=== PATIENT | female | born 1945 | race Two or more races ===

== ENCOUNTER → 2020-10-08 | Outpatient (CLI) | payer MEDICARE, BC ==
[~2020-10-08] MED LIST: GEMF600T8 PO; LEVO75TA5 PO; LOSA50TA14 PO; METF500T17 PO; METO50TA82 PO; OMEP20TA62 PO; ROSU20TA2 PO; SUCR1TAB33 PO
[2020-10-08 10:20] LABS: BASOPHILS % (AUTO) 1 % (0-1); EOSINOPHILS % (AUTO) 2 % (1-7); LYMPHOCYTES % (AUTO) 35 % (22-44); MEAN CORPUSCULAR HEMOGLOBIN 31.1 pg (27.0-34.8); MEAN CORPUSCULAR HGB CONC 33.9 g/dL (32.4-35.8); MEAN PLATELET VOLUME 7.8 fL (7.4-10.4); MONOCYTES % (AUTO) 9 % (2-9); NEUTROPHILS % (AUTO) 54 % (42-75); PLATELET COUNT 202 x10^3/uL (130-400); RED BLOOD COUNT 4.87 x10^6/uL (3.82-5.3); RED CELL DISTRIBUTION WIDTH 13.7 % (9.6-15.2)
[2020-10-08 10:23] LABS: MD NO
[2020-10-08 10:26] LABS: ALBUMIN 4.6 g/dL (3.4-5.0); ANION GAP 3 mmol/L (5-15); CALCIUM 10.4 mg/dL (8.5-10.1); CHLORIDE 111 mmol/L (98-107)
[2020-10-08 10:31] LABS: ALANINE AMINOTRANSFERASE 24 U/L (12-78); ALKALINE PHOSPHATASE 74 U/L (45-117); BILIRUBIN,TOTAL 0.6 mg/dL (0.2-1.0); CREATININE 0.63 mg/dL (0.55-1.02)
== END | disposition home or self-care (01) ==
LOC: STAR 08:25
PROVIDERS: ATTEND Internal Medicine
DX: Z01.818 Encounter for other preprocedural examination (principal); K92.2 Gastrointestinal hemorrhage, unspecified; Z20.828 Contact with and (suspected) exposure to other viral communicable diseases
CPT/HCPCS: 80053; 85025; 87635; 93005

== ENCOUNTER 2020-10-14 10:37 | Day surgery (SDC) | payer MEDICARE, BC ==
[~2020-10-14] VITALS: Ht 152.4 cm; Wt 46.2 kg
[2020-10-14] MEDS ORDERED: PROPOFOL 50 ML ONE (11:11)
[2020-10-14] MEDS ORDERED: LACTATED RINGERS 1,000 ML IV SCH (11:30)
[2020-10-14] MEDS ORDERED: FENTANYL PF 100 MCG/2ML IV PRN (11:30)
[2020-10-14] MEDS ORDERED: LABETALOL 5MG/ML, 20ML IV PRN (11:30)
[2020-10-14] MEDS ORDERED: CHLORHEXIDINE 15 ML UDC MM ONE (11:30)
[2020-10-14] MEDS ORDERED: ONDANSETRON 2MG/ML, 2ML IVPush PRN (11:30)
[2020-10-14] MEDS ORDERED: hydrALAzine 20 MG/ML, 1ML IV PRN (11:30)
[2020-10-14] MEDS ORDERED: DEXTROSE 50%, 50ML SYRINGE IVPush ONE (12:00)
[2020-10-14] MEDS ORDERED: LABETALOL 5MG/ML, 20ML ONE (13:25)
== END 2020-10-14 14:50 | disposition home or self-care (01) ==
LOC: OUT 10:37
PROVIDERS: ATTEND Internal Medicine
DX: R93.89 Abnormal findings on diagnostic imaging of other specified body structures (principal); K57.30 Diverticulosis of large intestine without perforation or abscess without bleeding; K56.699 Other intestinal obstruction unspecified as to partial versus complete obstruction; K21.9 Gastro-esophageal reflux disease without esophagitis; E11.9 Type 2 diabetes mellitus without complications; I10 Essential (primary) hypertension; E03.9 Hypothyroidism, unspecified; E78.5 Hyperlipidemia, unspecified; F41.9 Anxiety disorder, unspecified; Z79.899 Other long term (current) drug therapy; Z88.8 Allergy status to other drugs, medicaments and biological substances
CPT/HCPCS: 45378; 82962; J2704; J7120